=== PATIENT | female | born 1970 | race Caucasian/White ===

== ENCOUNTER 2017-03-10 06:47 | Inpatient (IN) | payer BC, OTHER ==
[2017-03-09 13:10] VITALS: BMI 34.0
[2017-03-10] MEDS ORDERED: Fentanyl 100 MCG/2 ML VIAL ONE ×2 (07:08→11:43)
[2017-03-10] MEDS ORDERED: Midazolam HCl 2 mg/2 ml Vial ONE ×3 (07:08→12:00)
[2017-03-10] MEDS ORDERED: Promethazine HCl 25 MG/ML VIAL ONE (07:08)
[2017-03-10] MEDS ORDERED: Bupivacaine PF 0.5% 30 ML VIAL ONE (07:15)
[2017-03-10] MEDS ORDERED: Lidocaine 1% w/Epinephrine 1:200K 30 ML VIAL ONE (07:15)
[2017-03-10] MEDS ORDERED: Ketorolac Tromethamine 30 MG/ML VIAL ONE (07:21)
[2017-03-10 07:42] LABS: #Basophils 0.1 thou/uL (0.0-0.2); #Eosinphils 0.4 thou/uL (0.0-0.7); #Lymphocytes 3.5 thou/uL (1.20-3.40); #Monocytes 0.8 thou/uL (0.11-0.59); #Neutrophils 4.8 thou/uL (1.40-6.50); %Basophils 1.3 % (0.0-1.0); %Eosinophils 4.4 % (0.0-10.0); %Lymphocytes 36.6 % (21.0-51.0); %Monocytes 7.8 % (0.0-10.0); Hematocrit 41.9 % (36.0-47.0); Mean Platelet Volume 6.5 fL (7.4-10.4); Red Blood Cell (RBC) Count 4.23 mill/uL (4.20-5.40); White Blood Cell (WBC) Count 9.6 thou/uL (4.8-10.8)
[2017-03-10 08:04] LABS: Anion Gap 13 mmol/L (10-20); BUN (Urea Nitrogen) 20 mg/dL (7.0-18.7); Calc. Creatinine Clearance 118 mL/min (70-130); Calcium 9.5 mg/dL (7.8-10.44); Carbon Dioxide 25 mmol/L (22-29); Chloride 103 mmol/L (98-107); Estimated GFR-MDRD 82
[2017-03-10] MEDS ORDERED: Lidocaine 1% PF 5 ML VIAL ONE (08:33)
[2017-03-10] MEDS ORDERED: Glycopyrrolate 0.2 MG/ML 5 ML SYRINGE ONE (08:33)
[2017-03-10] MEDS ORDERED: Propofol 200 MG/20 ML VIAL ONE (08:33)
[2017-03-10] MEDS ORDERED: ePHEDrine/0.9% NaCl/PF SYRINGE 50 mg/10 ml ONE (08:33)
[2017-03-10] MEDS ORDERED: Ondansetron HCl/PF 4 MG/2 ML Vial ONE (08:33)
[2017-03-10] MEDS ORDERED: PHENYLEPHRINE-NS 100 MCG/ML 10 ML SYRINGE ONE (08:33)
[2017-03-10] MEDS ORDERED: Dexamethasone 20 MG/5 ML VIAL ONE (08:33)
[2017-03-10] MEDS ORDERED: Labetalol HCl 100 MG/20 ML SYR ONE (08:33)
[2017-03-10] MEDS ORDERED: Labetalol HCl 100 MG/20 ML VIAL ONE (11:17)
[2017-03-10] MEDS ORDERED: Promethazine HCl 25 MG/ML VIAL SLOW IVP PRN (11:23)
[2017-03-10] MEDS ORDERED: HYDROmorphone 2 MG/ML VIAL SLOW IVP PRN (11:23)
[2017-03-10] MEDS ORDERED: Morphine Sulfate 2 MG/ML SYRINGE SLOW IVP PRN ×2 (11:23→13:20)
[2017-03-10] MEDS ORDERED: Meperidine HCl/PF 25 MG/ML VIAL SLOW IVP PRN (11:23)
[2017-03-10] MEDS ORDERED: Ondansetron HCl/PF 4 MG/2 ML Vial IVP PRN ×2 (11:23→13:20)
[2017-03-10] MEDS ORDERED: Promethazine HCl 25 MG/ML VIAL IM PRN (13:20)
[2017-03-10] MEDS ORDERED: Dextrose 5% in Water 1,000 ML IV PRN (13:20)
[2017-03-10] MEDS ORDERED: Calcium Carbonate 500 MG ChewTAB PO PRN (13:20)
[2017-03-10] MEDS ORDERED: Dextrose 50% Abboject 50 ML SYRINGE SLOW IVP PRN (13:20)
[2017-03-10] MEDS ORDERED: Mag-Al 1200 mg/1200 mg/30 ML UDCUP PO PRN (13:20)
[2017-03-10] MEDS ORDERED: HYDROcodone/Acetaminophen 7.5/325 mg Tablet PO PRN (13:20)
[2017-03-10] MEDS: D5 1/2 NS w/20 mEq KCL 1,000 ML IV SCH ×2 (13:32→19:56)
[2017-03-10] MEDS: Ketorolac Tromethamine 30 MG/ML VIAL IVP SCH ×3 (14:33→21:59)
--- NOTE | 2017-03-10 15:07 | EKG ---
Test Reason : Blood Pressure : / mmHG Vent. Rate : 081 BPM Atrial Rate : 081 BPM P-R Int : 176 ms QRS Dur : 068 ms QT Int : 386 ms P-R-T Axes : 051 004 015 degrees QTc Int : 448 ms Normal sinus rhythm Premature atrial complexes Low voltage QRS Septal infarct , age undetermined cannot be excluded Abnormal ECG Confirmed by LACIE ARCOS ([id number]) on 03/10/2017 3:06:30 PM Referred By: ALEJANDRO Confirmed By:LACIE ARCOS
[2017-03-10] MEDS: HYDROcodone/Acetaminophen 7.5/325 mg Tablet PO PRN ×2 (15:21→19:57)
[2017-03-10 19:05] LABS: Mean Platelet Volume 6.9 fL (7.4-10.4); White Blood Cell (WBC) Count 14.4 thou/uL (4.8-10.8)
[2017-03-10] MEDS: Famotidine 20 MG TAB PO SCH (19:55)
[2017-03-10] MEDS: Famotidine/PF 20 mg/2ml Vial SLOW IVP SCH (19:56)
[2017-03-11] MEDS: HYDROcodone/Acetaminophen 7.5/325 mg Tablet PO PRN ×3 (00:30→09:12)
[2017-03-11] MEDS: D5 1/2 NS w/20 mEq KCL 1,000 ML IV SCH ×2 (04:50→14:04)
[2017-03-11] MEDS: Ketorolac Tromethamine 30 MG/ML VIAL IVP SCH ×2 (05:24→11:30)
[2017-03-11 06:09] LABS: #Eosinphils 0.1 thou/uL (0.0-0.7); #Lymphocytes 2.1 thou/uL (1.20-3.40); #Monocytes 0.9 thou/uL (0.11-0.59); #Neutrophils 8.3 thou/uL (1.40-6.50); %Basophils 0.4 % (0.0-1.0); %Eosinophils 0.8 % (0.0-10.0); %Lymphocytes 18.3 % (21.0-51.0); %Monocytes 7.9 % (0.0-10.0); Hematocrit 34.6 % (36.0-47.0); Mean Platelet Volume 7.1 fL (7.4-10.4); Red Blood Cell (RBC) Count 3.42 mill/uL (4.20-5.40); White Blood Cell (WBC) Count 11.4 thou/uL (4.8-10.8)
[2017-03-11 06:37] LABS: ALT (SGPT) 434 U/L (8-55); AST (SGOT) 435 U/L (5-34); Alkaline Phosphatase 44 U/L (40-150); Anion Gap 13 mmol/L (10-20); BUN (Urea Nitrogen) 9 mg/dL (7.0-18.7); Bilirubin, Total 0.6 mg/dL (0.2-1.2); Calc. Creatinine Clearance 138 mL/min (70-130); Calcium 8.7 mg/dL (7.8-10.44); Carbon Dioxide 23 mmol/L (22-29); Chloride 105 mmol/L (98-107); Estimated GFR-MDRD Greater than 90; Globulin 2.5 g/dL (2.4-3.5)
[2017-03-11] MEDS ORDERED: Enoxaparin Sodium 40 MG/0.4 ML SYRINGE SC SCH (09:00)
[2017-03-11] MEDS ORDERED: Hydrochlorothiazide 25 MG TAB PO SCH (09:00)
[2017-03-11] MEDS ORDERED: NORETHINDRONE E ESTRADIOL IRON PO SCH (09:00)
[2017-03-11] MEDS ORDERED: Lisinopril 20 MG TAB PO SCH (09:00)
[2017-03-11] MEDS: Famotidine 20 MG TAB PO SCH (09:06)
[2017-03-11] MEDS: Famotidine/PF 20 mg/2ml Vial SLOW IVP SCH (09:08)
[2017-03-11 15:46] VITALS: BP 101/58; TEMP 97.9
--- NOTE | 2017-03-13 07:33 | OP ---
DATE OF PROCEDURE: 03/10/2017 PREOPERATIVE DIAGNOSES: Gastroesophageal reflux disease, hiatal hernia, severe obesity. POSTOPERATIVE DIAGNOSES: Gastroesophageal reflux disease, hiatal hernia, severe obesity with marked hepatic steatosis. OPERATION PERFORMED: Laparoscopic Mely fundoplication (significantly more difficult than typical secondary to intra-abdominal obesity and hepatic steatosis). SURGEON: Dr. Андрей Tilley. ANESTHESIA: General endotracheal. INDICATIONS: The patient is a 47-year-old white female. She has a long history of gastroesophageal reflux disease. 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 She has a smallish hiatal hernia. She has been on medication with progressive intractable symptoms in spite of medication. PROCEDURE IN DETAIL: Informed consent was obtained. The patient was taken to the operating room wh ere general endotracheal anesthesia was obtained with the patient in supine position. Abdomen was p repped with ChloraPrep and draped in sterile fashion. Local anesthetic was infiltrated and 5 mm sup raumbilical incision was created through which a Veress needle was passed into the peritoneal cavity and pneumoperitoneum established using carbon dioxide up to a pressure of 15 mmHg. A 5 mm trocar p ort was passed through this same incision. Laparoscopic camera was passed through this port. Under direct vision, 4 additional ports were placed. These included an 11 mm left epigastric port, a 5 m m right epigastric port, and bilateral 5 mm lower right subcostal ports. A triangle snake retractor was passed into the right port and used to elevate the left lobe of the liver. Unfortunately, this was a very difficult endeavor secondary to iman the hepatic steatosis. I had significant difficult y with elevating the liver or retracting the liver at all to the patient's right. There was a very narrow window in which to work under the liver. It was challenging viewing the hiatus due to the la rge livers fusion to the diaphragm almost immediately over the hiatus. I was able to pass the scope under the edge of the liver and view adequately that I felt it was safe to proceed with surgery. Dissection was begun on the patient's right side. It was difficult to vi sualize the pars flaccida, but with time I was and I dissected through the fatty tissue along the le sser curve. With time I was able to identify the right sarita. I dissected along the right sarita sepa rating this from the esophagus. I dissected somewhat along the anterior aspect at this location. T urning attention to the left side, due to the patient's anatomy, I could not see any part of the lef t sarita. I therefore began dissection along the greater curvature of the stomach. The upper half of the stomach was mobilized by taking down the omental and vascular tissue using the LigaSure device. All posterior adhesions were divided as well. Dissection up around the spleen was difficult. Wit h a relatively slow and meticulous dissection, however, I was able to fully mobilize the fundus of t he stomach up to the left sarita. I then dissected the entire left sarita and freed up the esophagus as it entered into the mediastinum. From the left side I was able to complete dissection along the an terior aspect of the gastrophrenic ligament. I then turned my attention to the right and was able to dissect a retroesophageal window through whi ch I passed a Martín drain. Utilizing this for traction, I then continued dissection until the rig ht sarita and left sarita were fully dissected and I had an ample retroesophageal window. Care was take n to avoid injury to the vagus nerves during this maneuver. I passed a size 50 bougie into the stomach under vision and utilizing this as a guide, I closed the posterior hiatus with a single interrupted suture of 0 Bralon using the auto-suture device. I then passed the fundus behind the esophagus through the retroesophageal window. I was able to fascia in a tension-free wrap. A floppy 360 degree wrap was performed, placing 3 sutures of 0 Bralon between the stomach on either side of the esophagus. The upper and lower sutures included bites of the ante rior esophagus. Each of the sutures were positioned 1 cm apart. At completion of the wrap, I place d 2 collar sutures of 0 Bralon between the fundal wrap and the hiatus at about the 2 o'clock and 10 o'clock radians. During the course of this mobilization, while struggling with the hepatic steatosis, at one point e LigaSure device punctured the medial aspect of the spleen. This bled significantly for a couple o f minutes while I was obtaining hemostasis. Electrocautery was used, but found to be unsuccessful a nd I thereafter had to use Selena powder. This was applied a total of 3 times. There was found to be another area of the spleen (which was also somewhat enlarged) lower down on the anterior aspect t hat was bleeding. With careful mobilization and exposure, I was able to appropriately apply the Cheikh sta and achieved adequate hemostasis. This occurred in the middle of the operation and was checked several times thereafter to ensure appropriate hemostasis before continuing. The liver retractor was removed. The port site at the 11 mm incision was closed with 0 Vicryl sutur e using a GraNee needle. All ports and instruments were removed under direct vision. Pneumoperiton eum was carefully evacuated. Quarter percent Marcaine with epinephrine was infiltrated into each po rt site. The skin edges were approximated with 4-0 Monocryl subcuticular suture. Dermabond was allison julio externally. There were no significant complications. Blood loss was estimated at 400 mL from t he splenic injury. The patient had remained in stable condition throughout. This operation had justin en close to 3 hours to perform (about twice as long as a typical fundoplication).
== END 2017-03-11 16:13 | disposition home or self-care (01) | DRG 328 ==
LOC: SDC 06:47 → EDSTATUS 09:26 → SURG B 11:05
PROVIDERS: ADMIT Specialist; ATTEND Specialist
PROC: 0DV44ZZ Restriction of Esophagogastric Junction, Percutaneous Endoscopic Approach (ICD-10-PCS; principal; 2017-03-10)
DX: K21.0 Gastro-esophageal reflux disease with esophagitis (principal); E88.89 Other specified metabolic disorders; K44.9 Diaphragmatic hernia without obstruction or gangrene; E66.9 Obesity, unspecified; K22.70 Barrett's esophagus without dysplasia; Z68.34 Body mass index [BMI] 34.0-34.9, adult; Z87.891 Personal history of nicotine dependence
CPT/HCPCS: 36415; 80048; 80053; 85025; 93005; 93010; J0131; J1100; J1170; J1885; J2001; J2250; J2270; J2405; J2550; J2704; J3010; J7620; S0020; S0028

== ENCOUNTER 2017-08-08 22:33 | Inpatient (IN) | payer BC, OTHER ==
[2017-08-08] MEDS ORDERED: Dextrose 5% in Water 1,000 ML IV PRN (23:48)
[2017-08-08] MEDS ORDERED: Dextrose 50% Abboject 50 ML SYRINGE SLOW IVP PRN (23:48)
[2017-08-08] MEDS ORDERED: hydrALAZINE 20 MG/ML VIAL SLOW IVP PRN (23:53)
[2017-08-08] MEDS ORDERED: Ondansetron HCl/PF 4 MG/2 ML Vial IVP PRN (23:53)
[2017-08-08] MEDS ORDERED: Midazolam HCl 2 mg/2 ml Vial ONE (23:57)
[2017-08-08] MEDS ORDERED: Fentanyl 250 MCG/5 ML VIAL ONE (23:57)
[2017-08-09 00:15] LABS: INR-International Normal Ratio 1.1; PTT 25.7 SEC (22.9-36.1); Prothrombin Time 13.9 SEC (12.0-14.7)
--- NOTE | 2017-08-09 00:49 | HP ---
DATE OF ADMISSION: 08/08/2017 HISTORY OF PRESENT ILLNESS: Ms. Gusman is a 47-year-old woman who presented to [facility] in [facility] complaining of sudden-onset epigastric severe abdominal pain rated at 10/10 at onset. Pain b ecame constant, without any radiation. The patient admits to some nausea, but no emesis. She attemp crystal multiple times to vomit hoping for relief without success. She denies any fevers or chills. The patient reports she has been taking meloxicam for arthritic disease. She has increased the amount o f meloxicam she is taking over the last 2-3 weeks as joint pain had intensified. She has not been on any H2 blockers or proton pump inhibitors. PAST MEDICAL HISTORY: Pertinent for Rice's esophagus, essential hypertension, degenerative arthri tic disease, and chronic depression. PAST SURGICAL HISTORY: Pertinent for laparoscopic Mely fundoplication in 02/2017. Other surgical history includes appendectomy, . SOCIAL HISTORY: The patient is . She lives at home with her . She smokes 1-1/2 packs of cigarettes per day and has done so for over 20 years. She admits to occasional intake of ethanol in moderate amount. She denies any illicit drug abuse. FAMILY HISTORY: Noncontributory for this patient's age. MEDICATIONS: Prehospitalization medication has been reviewed to include citalopram 20 mg p.o. daily, meloxicam 15 mg p.o. q.p.m., control pills, lisinopril/hydrochlorothiazide 20/12.5 mg p.o. marquez ly, and aspirin 81 mg p.o. daily. ALLERGIES: The patient denies any known drug allergies. REVIEW OF SYSTEMS: 10-point review of systems is essentially unremarkable except for as stated in pa st medical history and chief complaint. PHYSICAL EXAMINATION: GENERAL: This reveals a 47-year-old obese woman, who is otherwise coherent and interactive and appears stated age. The patient is alert and oriented x3, appears to be in no significant acute distress at the time of my evaluation. She now rates her pain at 8/10 having received some morphine sulfate prior to arrival. VITAL SIGNS: Today includes blood pressure 134/78, pulse 73, respiratory rate is 18, temperature 98. 5 degrees Fahrenheit, and oxygen saturation 94% on room air. HEENT: Reveals normocephalic and atraumatic. Pupils are equal, round, and reactive to light and acc ommodation. Extraocular muscles are intact bilaterally. She has no scleral icterus present. No jug ular venous distention is noted. HEART: Reveals regular rate and rhythm. No murmurs or gallops auscultated. LUNGS: Clear to auscultation bilaterally. Breathing regular and unlabored. ABDOMEN: Soft and obese. She has palpable tenderness in the epigastrium to right upper quadrant wit h positive rebound. Liver and spleen are otherwise nonpalpable below costal margins. NEUROLOGIC: Reveals no focal deficits present. EXTREMITIES: Reveals 2+ radial and pedal pulses bilaterally. No ankle edema present. LABORATORY DATA: I have reviewed the accompanying laboratory studies from [place] to include a CB C with 9100 white blood cells, hemoglobin 13.1, hematocrit is 39, platelet count is 549,000. Metabol ic profile: Sodium is 133, potassium is 3.6, bicarbonate 24, BUN 12, creatinine 0.7, glucose 89. I have also reviewed the accompanying CT scan of the abdomen and pelvis from [place], which reveals moderate amount of free intraperitoneal air with small amount of pelvic free fluid. There is fat str anding in the neighborhood of the stomach. IMPRESSIONS: Acute abdominal pain with peritonitis secondary to perforated viscus. I suspect perfor ated ulcer given this patient's recent increase in usage of nonsteroidal anti-inflammatory agent with out any PPI or H2 blockade. PLAN: Exploratory laparotomy and repair of perforated viscus. Above findings and plan have been discussed with the patient and her as well as an adult son, all at bedside. I have advised the patient of the risks and benefits of the proposed surgery. Risk s include, but not limited to bleeding, infection, injury to surrounding structures. The patient indicates understanding of this information. I have answered her questions. The patient has granted consent for this admission and surgical inter vention.
[2017-08-09] MEDS ORDERED: Fentanyl 250 MCG/5 ML VIAL ONE ×2 (01:30→03:05)
[2017-08-09] MEDS ORDERED: Morphine 4 MG/ML VIAL SLOW IVP PRN (02:58)
[2017-08-09] MEDS ORDERED: Meperidine HCl/PF 25 MG/ML VIAL SLOW IVP PRN (03:05)
[2017-08-09] MEDS ORDERED: Ondansetron HCl/PF 4 MG/2 ML Vial IVP PRN (03:05)
[2017-08-09] MEDS ORDERED: Promethazine HCl 25 MG/ML VIAL IM PRN ×2 (03:05→10:42)
[2017-08-09] MEDS ORDERED: Promethazine HCl 25 MG/ML VIAL SLOW IVP PRN (03:05)
[2017-08-09] MEDS ORDERED: Sodium Chloride 0.9% 20 ML ONE (03:14)
[2017-08-09] MEDS: Morphine 4 MG/ML VIAL SLOW IVP PRN ×4 (04:12→10:40)
[2017-08-09] MEDS: Piperacillin/Tazobactam 3.375 GM in Sodium Chloride 0.9% 100 ML IVPB SCH ×4 (04:59→18:09)
[2017-08-09 05:10] LABS: #Lymphocytes 0.8 thou/uL (1.20-3.40); #Monocytes 0.3 thou/uL (0.11-0.59); #Neutrophils 9.7 thou/uL (1.40-6.50); %Basophils 0.1 % (0.0-1.0); %Eosinophils 0.2 % (0.0-10.0); %Lymphocytes 7.5 % (21.0-51.0); %Monocytes 2.4 % (0.0-10.0); %Neutrophils 89.7 % (42.0-75.0); Hemoglobin 11.7 g/dL (12.0-16.0); Mean Corpuscular HGB CONC 32.2 g/dL (32.0-36.0); Mean Corpuscular Hemoglobin 31.9 pg (27.0-31.0); Mean Corpuscular Volume 99.1 fl (81.0-99.0); Mean Platelet Volume 7.3 fL (7.4-10.4); Platelet Count 459 thou/uL (130-400); RBC Distribution Width 12.9 % (11.5-14.5); Red Blood Cell (RBC) Count 3.66 mill/uL (4.20-5.40); White Blood Cell (WBC) Count 10.8 thou/uL (4.8-10.8)
[2017-08-09] MEDS: Acetaminophen 1,000 MG in Premix Bag 1 BAG IVPB SCH ×3 (05:22→18:09)
--- NOTE | 2017-08-09 05:27 | OP ---
DATE OF OPERATION: 08/09/2017 PREOPERATIVE DIAGNOSIS: Acute abdominal pain secondary to perforated viscus. POSTOPERATIVE DIAGNOSES: 1. Acute abdominal pain secondary to perforated viscus. 2. Acute abdominal pain secondary to perforated greater curvature gastric ulcer. 3. Acute peritonitis. OPERATIONS PERFORMED: 1. Exploratory laparotomy. 2. Oversew of greater curvature gastric ulcer perforation with Arcadio patch. 3. Placement of feeding nasojejunal tube. SURGEON: Tim Diego D.O. ANESTHESIA: General endotracheal. ESTIMATED BLOOD LOSS: 100 mL. FLUIDS GIVEN: 1600 mL crystalloids. SPONGE AND INSTRUMENT COUNT: Certified as correct x2. COMPLICATIONS: None apparent at the time of operation. INDICATIONS FOR OPERATION: This is a 47-year-old woman status post laparoscopic Mely fun doplication. The patient presented with acute onset epigastric abdominal pain. Clinical and radiogr aphic examination was consistent with acute perforated viscus causing severe abdominal pain with poss ible peritonitis. The patient was brought to the operating room for exploration. Findings are consi stent with perforated greater curvature 3-mm ulcer with over 300 mL of succus entericus in the perito ashley cavity. DESCRIPTION OF PROCEDURE: Informed consent obtained from the patient who was brought to the operatin g room and placed in supine position. Following general anesthesia, the abdomen is sterilely prepped and draped in usual fashion. Midline incision is made above the umbilicus using #10 scalpel. Incis ion was carried through subcutaneous tissues maintaining hemostasis using thermocautery. Fascia was incised in the midline using cautery exposing the peritoneum beneath, which was grasped x2 with hemos tats. The peritoneal cavity was sharply entered and immediately a large amount of air escaped. Expl oration revealed cloudy ascitic fluid. Small bowel was run from ligament of Treitz down to terminal ileum. No pathology identified. I inspected the stomach proper and previous nasogastric tube and ga stric lumen. I then proceeded to examine the previous Mely wrap, which remains intact. Upon exploration a 3-mm greater curvature of gastric ulcer perforation is identified. A fair amount of fibrinous exudates in the area, which were evacuated. The ulcer is repaired using interrupted sut ures of 3-0 silk. I then freshened the lip of omentum, which is secured over the repair to achieve a Arcadio patch. The colon was inspected. No other pathology identified. At this juncture, a feeding nasojejunal tube w as inserted by Anesthesia tip of which was palpated by myself within the gastric lumen. Under manipu lated tip of this catheter into proximal small bowel without resistance. Abdominal cavity was evacuated of clot or succus. It was then copiously irrigated clear with saline solution. Finding no other pathology, exploration is terminated. A #19-Shan drain was introduced o jackie the right upper quadrant and allowed to exit the abdominal cavity through a separate stab incisio n. The drain was secured to intraabdominal wall using a 2-0 silk suture. Small bowel was returned t o normal anatomic location. The remainder of the omentum is drawn over the viscera. Fascia was reap proximated in the midline using a running stitch of #1 single stranded PDS. Subcutaneous tissues irr igated clear with saline solution. Subcutaneous tissues were approximated using interrupted sutures of 2-0 Vicryl. Skin incisions closed using ilya. Sterile dressings were applied. The patient to lerated the operation without any apparent complication and was returned to recovery room in satisfac tory condition.
[2017-08-09 05:34] LABS: Anion Gap 13 mmol/L (10-20); BUN (Urea Nitrogen) 14 mg/dL (7.0-18.7); Calc. Creatinine Clearance 0 mL/min (70-130); Carbon Dioxide 19 mmol/L (22-29); Chloride 108 mmol/L (98-107); Estimated GFR-MDRD Greater than 90; Glucose 150 mg/dL (70-105); Potassium 3.6 mmol/L (3.5-5.1); Sodium 136 mmol/L (136-145)
[2017-08-09] MEDS: D5 1/2 NS w/20 mEq KCL 1,000 ML IV SCH ×3 (06:43→12:24)
[2017-08-09 08:02] VITALS: BMI 30.2
[2017-08-09] MEDS: Pantoprazole 40 MG VIAL IVP SCH ×2 (08:31→22:14)
[2017-08-09] MEDS: Enoxaparin Sodium 40 MG/0.4 ML SYRINGE SC SCH (08:32)
[2017-08-09] MEDS: Citalopram 20 MG TAB PO SCH ×2 (08:33→14:09)
[2017-08-09] MEDS ORDERED: Lorazepam 2 MG/ML VIAL SLOW IVP PRN (09:57)
[2017-08-09] MEDS ORDERED: Lorazepam 2 MG/ML VIAL ONE (10:00)
[2017-08-09] MEDS ORDERED: Naloxone HCl 0.4 mg/ml Vial IV PRN (10:42)
[2017-08-09] MEDS ORDERED: diphenhydrAMINE 50 MG/ML VIAL IVP PRN (10:42)
[2017-08-09] MEDS ORDERED: diphenhydrAMINE 25 MG CAP PO PRN (10:42)
[2017-08-09] MEDS ORDERED: diphenhydrAMINE 50 MG/ML VIAL IM PRN (10:42)
[2017-08-09] MEDS ORDERED: Communication Order-Pharmacy FS SCH (10:45)
--- NOTE | 2017-08-09 12:44 | RAD ---
AP VIEW ABDOMEN: HISTORY: Dobbhoff tube placement. FINDINGS: AP view abdomen was obtained on 08/09/17. Comparison study is not available. AP view abdomen demonstrates a nasogastric tube in place. Anterior skin ilya seen. There is placement of a Dobbhoff tube distal tip overlying the proximal jejunum. There is also a surgical drain over the left lateral and mid abdomen. Pelvic fallopian tube clips are in place. IMPRESSION: Dobbhoff tube appears to have its distal tip overlying the expected location of the jejunum. POS: PILO
[2017-08-09] MEDS: HYDROmorphone 10 mg/100 ml CADD IVPB PRN (12:55)
[2017-08-09] MEDS ORDERED: Lorazepam 2 MG/ML VIAL SLOW IVP SCH (13:00)
[2017-08-09] MEDS ORDERED: Propofol 200 MG/20 ML VIAL ONE (15:27)
[2017-08-09] MEDS ORDERED: Glycopyrrolate 0.2 MG/ML 5 ML SYRINGE ONE (15:27)
[2017-08-09] MEDS ORDERED: Lidocaine 1% PF 5 ML VIAL ONE (15:27)
[2017-08-09] MEDS ORDERED: ePHEDrine/0.9% NaCl/PF SYRINGE 50 mg/10 ml ONE (15:27)
[2017-08-09] MEDS ORDERED: Succinylcholine Chloride 20 MG/ML 10 ml SYRINGE FS ONE (15:27)
[2017-08-09] MEDS ORDERED: Diazepam 5 MG TAB PO SCH ×3 (16:00)
[2017-08-09] MEDS: Diazepam 5 MG TAB PO PRN (18:10)
--- NOTE | 2017-08-09 19:03 | PRG ---
DATE OF SERVICE: 08/09/2017 SUBJECTIVE: Ms. Gusman is postop day #1, status post exploratory laparotomy and repair of gastric u lcer perforation. Prior to that, she is approximately 3 months status post laparoscopic Mely fund oplication. The patient reports uncontrolled abdominal pain today. She became delirious this morning and agitated, reporting panic attacks, which according to the patie nt and her , she is prone to. This was resolved with a dose of Ativan. She denies passing any flatus. Urinary output; however, is adequate. OBJECTIVE: VITAL SIGNS: Today includes blood pressure 129/87, pulse 84, respiratory rate is 18, temperature is 98.4 degrees Fahrenheit and oxygen saturation 95% on room air. HEENT: Reveals normocephalic and atraumatic. HEART: Reveals regular rate and rhythm. No murmurs or gallops auscultated. CHEST: Lungs clear to auscultation bilaterally. Breathing regular and unlabored. ABDOMEN: Soft with moderate incisional tenderness to palpation. She has no gross rebound tenderness . NEUROLOGICAL: Reveals no focal neurologic deficits present. Currently, the patient's Henrry coma s paula is 15. LABORATORY DATA: Today includes a CBC with 10,800 white blood cells, hemoglobin and hematocrit are s table at 11.7 and 36.2 respectively. Platelet count is 459,000. Metabolic profile: Sodium 136, potassium is 3.6, chloride is 108, bicarbonate is 19, BUN and creatin ine are 14 and 0.69 respectively. Glucose is 150. IMPRESSION: Postoperative day #1 status post exploratory laparotomy with repair of perforated gastri c ulcer. The patient is hemodynamically stable. PLAN: 1. Optimize pain management using DANCE COACH. 2. Increase activity as tolerated. 3. We will resume prehospitalization antidepressants. Above findings and plan discussed with the patient who indicates understanding of the information giv en. I have answered their questions.
--- NOTE | 2017-08-09 23:50 | PRG ---
DATE OF SERVICE: 08/09/2017 SUBJECTIVE: This is a 47-year-old female status post exploratory laparotomy, repair of gastric ulcer perforation, postop day #0. She is approximately 3 months status post Mely fundoplication. The patient did have problems with agitation and uncontrolled pain earlier this morning. Since that time, she has been placed on PRE[employer] CONCRETE IRONWORKER pump. She was also started on Valium. Upon my evaluation, she states her pain is better controlled. She still denies flatus or bowel movements. OBJECTIVE: VITAL SIGNS: Reviewed and stable. GENERAL: The patient recently returned from restroom. LUNGS: Breathing is nonlabored. ABDOMEN: Soft with generalized tenderness. EXTREMITIES: Moves all extremities. NEUROLOGIC: No focal deficit is noted. ASSESSMENT AND PLAN: As documented in daily progress note. Continue care as ordered. Continue to monitor. Await return of bowel function. MTDD
[2017-08-10] MEDS: Diazepam 5 MG TAB PO PRN ×5 (01:04→23:59)
[2017-08-10] MEDS: Acetaminophen 500 MG TAB PO SCH ×5 (01:05→23:58)
[2017-08-10] MEDS: Piperacillin/Tazobactam 3.375 GM in Sodium Chloride 0.9% 100 ML IVPB SCH ×5 (01:05→23:58)
[2017-08-10] MEDS: D5 1/2 NS w/20 mEq KCL 1,000 ML IV SCH ×4 (01:07→23:58)
[2017-08-10 06:01] LABS: #Eosinphils 0.2 thou/uL (0.0-0.7); #Lymphocytes 2.5 thou/uL (1.20-3.40); #Monocytes 0.7 thou/uL (0.11-0.59); #Neutrophils 11.1 thou/uL (1.40-6.50); %Basophils 0.1 % (0.0-1.0); %Eosinophils 1.3 % (0.0-10.0); %Lymphocytes 17.1 % (21.0-51.0); %Monocytes 4.8 % (0.0-10.0); %Neutrophils 76.8 % (42.0-75.0); Hemoglobin 10.1 g/dL (12.0-16.0); Mean Corpuscular HGB CONC 33.1 g/dL (32.0-36.0); Mean Corpuscular Hemoglobin 32.6 pg (27.0-31.0); Mean Corpuscular Volume 98.5 fl (81.0-99.0); Mean Platelet Volume 7.3 fL (7.4-10.4); Platelet Count 442 thou/uL (130-400); RBC Distribution Width 12.9 % (11.5-14.5); Red Blood Cell (RBC) Count 3.09 mill/uL (4.20-5.40); White Blood Cell (WBC) Count 14.5 thou/uL (4.8-10.8)
[2017-08-10 06:28] LABS: Anion Gap 11 mmol/L (10-20); BUN (Urea Nitrogen) 10 mg/dL (7.0-18.7); Calc. Creatinine Clearance 117 mL/min (70-130); Calcium 8.8 mg/dL (7.8-10.44); Carbon Dioxide 24 mmol/L (22-29); Estimated GFR-MDRD Greater than 90; Glucose 123 mg/dL (70-105); Magnesium 1.8 mg/dL (1.6-2.6); Phosphorus 2.3 mg/dL (2.3-4.7); Potassium 3.5 mmol/L (3.5-5.1)
[2017-08-10 06:39] LABS: Chloride 104 mmol/L (98-107); Sodium 135 mmol/L (136-145)
[2017-08-10] MEDS: Lisinopril/Hydrochlorothiazide 20 mg/12.5 mg Tablet PO SCH (09:28)
[2017-08-10] MEDS: Citalopram 20 MG TAB PO SCH (09:28)
[2017-08-10] MEDS: Pantoprazole 40 MG VIAL IVP SCH ×2 (09:29→19:59)
[2017-08-10] MEDS: Enoxaparin Sodium 40 MG/0.4 ML SYRINGE SC SCH (09:29)
[2017-08-10] MEDS: HYDROmorphone 10 mg/100 ml CADD IVPB PRN (12:18)
[2017-08-10] MEDS ORDERED: Polyethylene Glycol 3350 17 GM Packet PO PRN (18:48)
[2017-08-10] MEDS: Bisacodyl 10 MG SUPP PR PRN (19:59)
[2017-08-10] MEDS ORDERED: Docusate 100 MG CAP PO SCH (21:00)
--- NOTE | 2017-08-11 02:33 | PRG ---
DATE OF SERVICE: 08/10/2018 SUBJECTIVE: This is a 47-year-old female, who is postop day #1, status post exploratory laparotomy and repair of gastric ulcer perforation. Earlier today, the patient had increased abdominal distention and bloating and tube feeds were temporarily stopped. She received a rectal suppository. Although patient has not had a bowel movement, she thinks she is starting to pass some flatus this evening. She further states that the bloating seems to be improving. Pain has been controlled via PRESS LEADER pump. Upon my evaluation, she vocalized no complaints. OBJECTIVE: VITAL SIGNS: Reviewed. The patient is mildly tachycardic. O2 sat 93% on room air. GENERAL: Resting in bed in no acute distress. LUNGS: Breathing is nonlabored. ABDOMEN: Soft with generalized tenderness. No guarding or rigidity. ASSESSMENT AND PLAN: As documented in daily progress note. Continue care as ordered. Continue to monitor. The patient should be reminded of importance of incentive spirometry of mobilizing and pulmonary toileting. Await return of bowel function. MTDD
[2017-08-11] MEDS: Acetaminophen 500 MG TAB PO SCH ×4 (06:23→23:56)
[2017-08-11] MEDS: Piperacillin/Tazobactam 3.375 GM in Sodium Chloride 0.9% 100 ML IVPB SCH ×4 (06:23→23:58)
[2017-08-11] MEDS: Citalopram 20 MG TAB PO SCH (08:32)
[2017-08-11] MEDS: Diazepam 5 MG TAB PO PRN ×3 (08:33→23:57)
[2017-08-11] MEDS: Lisinopril/Hydrochlorothiazide 20 mg/12.5 mg Tablet PO SCH (08:33)
[2017-08-11] MEDS: Pantoprazole 40 MG VIAL IVP SCH ×2 (08:33→20:09)
[2017-08-11] MEDS: Enoxaparin Sodium 40 MG/0.4 ML SYRINGE SC SCH (08:34)
--- NOTE | 2017-08-11 08:50 | PRG ---
DATE OF SERVICE: 08/10/2017 ATTENDING PHYSICIAN: Layton Alexander M.D. SUBJECTIVE: Ms. Gusman is postoperative day #2, status post exploratory laparotomy and repair of ga stric ulcer perforation. Prior to that, she has approximately 3 months status post laparoscopic Niss en fundoplication. She has been stable on the surgical floor. CALL WORKER PERSON and Valium were added yesterday f or abdominal pain. She reports that (0:44)
[2017-08-11] MEDS: traMADol HCl 50 MG TAB PO SCH ×3 (11:28→23:56)
[2017-08-11] MEDS: D5 1/2 NS w/20 mEq KCL 1,000 ML IV SCH ×2 (13:10→23:55)
--- NOTE | 2017-08-11 14:40 | PRG ---
DATE OF SERVICE: 08/11/2017 SUBJECTIVE: Ms. Gusman is awake and alert today. She is postoperative day #2 status post explorato ry laparotomy and repair of perforated gastric ulcer. She reports adequate pain control. She has ad equate urinary output. She is tolerating trophic tube feeds. OBJECTIVE: VITAL SIGNS: Today includes blood pressure 118/79, pulse 78, respiratory rate 16, temperature 98 deg rosemary Fahrenheit, oxygen saturation is 92% on room air. HEENT: Reveals normocephalic and atraumatic. Pupils are equal, round, and reactive to light and acc ommodation. HEART: Reveals regular rate and rhythm, no murmurs or gallops auscultated. CHEST: Lungs clear to auscultation bilaterally. Breathing is regular and unlabored. ABDOMEN: Soft with incisional tenderness to palpation. The incision otherwise remains intact, clean , and dry. Sánchez-Joyner drain returns scant serous fluid. NEUROLOGIC: Reveals no focal deficits present. IMPRESSION: Postoperative day #2 status post exploratory laparotomy and repair of perforated gastric ulcer. The patient is otherwise hemodynamically stable. PLAN: 1. Discontinue Dilaudid MODERN LANGUAGES PROFESSOR and convert analgesics to oral intake. 2. Increase activity as tolerated. 3. We will obtain a Gastrografin upper GI tomorrow. If no leak, resume diet. The above findings an d plan discussed with the patient who indicates understanding of information given. I answered her q uestions. The patient has expressed gratitude for the care and nurture during this hospitalization a nd surgery.
[2017-08-11] MEDS: Bisacodyl 10 MG SUPP PR PRN (20:15)
[2017-08-12] MEDS: Piperacillin/Tazobactam 3.375 GM in Sodium Chloride 0.9% 100 ML IVPB SCH ×2 (05:21→12:23)
[2017-08-12] MEDS: traMADol HCl 50 MG TAB PO SCH ×2 (05:22→12:17)
[2017-08-12] MEDS: Acetaminophen 500 MG TAB PO SCH ×2 (05:23→12:23)
[2017-08-12] MEDS ORDERED: Furosemide 20 MG/2 ML VIAL SLOW IVP SCH (08:45)
[2017-08-12] MEDS ORDERED: Amlodipine 5 MG TAB PO SCH (09:00)
[2017-08-12] MEDS: Enoxaparin Sodium 40 MG/0.4 ML SYRINGE SC SCH (10:16)
[2017-08-12] MEDS: Lisinopril/Hydrochlorothiazide 20 mg/12.5 mg Tablet PO SCH (10:16)
[2017-08-12] MEDS: Citalopram 20 MG TAB PO SCH (10:17)
[2017-08-12] MEDS: Diazepam 5 MG TAB PO PRN (10:20)
--- NOTE | 2017-08-12 11:02 | RAD ---
GASTROGRAFIN UPPER GI: Date: 08-12-17 History: Gastric ulcer, perforation, status post repair. FINDINGS: Gang Boss imaging demonstrates a Dobbhoff tube extending into the mid left abdomen, likely within the pro ximal jejunum. Vertically oriented cutaneous ilya overlie the midline abdomen and pelvis. There is a post-surgical drainage catheter overlying the epigastric region extending into the left lower quad rant. There is patchy increased pleural and parenchymal opacity in the left lung base. The patient ingested Gastrografin and the contrast media was followed from the level of the distal es ophagus through the proximal small bowel. There is no evidence for leak or obstruction. No contrast m edia extends beyond the confines of the bowel and no evidence for contrast media in the region of the post-surgical drain. IMPRESSION: Limited Gastrografin upper GI demonstrates no evidence for gastric leak or gastric outlet obstruction . POS: PILO
--- NOTE | 2017-08-12 11:26 | PRG ---
DATE OF SERVICE: 08/12/2017 SUBJECTIVE: The patient is postop day #2, status post exploratory laparotomy and repair of perforate d gastric ulcer. This evening, the patient has no complaints. She does other than having some feeli ng of bloatedness. She is tolerating her tube feeds. OBJECTIVE: VITAL SIGNS: Stable. Patient remains afebrile. ABDOMEN: Soft. Her dressing is clean, dry, and intact. She has little to no bowel sounds at this t cesilia, which is to be expected. ASSESSMENT: Status post exploratory laparotomy and repair of perforated gastric ulcer. PLAN: Will be to continue her pain management, tube feeds, and she will have a Gastrografin upper GI in the morning and her plan will be modified according to those findings, otherwise, we will continu e supportive care tonight.
[2017-08-12] MEDS: Pantoprazole 40 MG VIAL IVP SCH (12:16)
[2017-08-12] MEDS ORDERED: Furosemide 20 MG TAB PO SCH (12:30)
[2017-08-12] MEDS ORDERED: Acetaminophen 500 MG TAB PO SCH (15:00)
[2017-08-12 15:44] VITALS: BP 123/85; TEMP 98.2
--- NOTE | 2017-08-12 23:54 | DIS ---
DATE OF ADMISSION: 08/09/2017 DATE OF DISCHARGE: 08/12/2017 ADMITTING PHYSICIAN: Tim Diego D.O. DISCHARGING PHYSICIAN: Tim Diego D.O. ADMISSION DIAGNOSIS: Acute abdominal pain with peritonitis secondary to perforated viscus. DISCHARGE DIAGNOSES: 1. Acute abdominal pain secondary to perforated and greater curvature gastric ulcer status post surg ical repair. 2. Acute peritonitis. PROCEDURES PERFORMED: 1. Exploratory laparotomy. 2. Oversew of greater curvature gastric ulcer perforation with Arcadio patch. 3. Placement of feeding nasojejunal tube. HOSPITAL COURSE: Ms. Gusman is a 47-year-old female who presented to the hospital in [facility] of sudden onset epigastric severe abdominal pain which she rated at 10/10. She was found to have a perforated viscus and was transported by EMS to the [facility] ED where she was on further ev aluation determined that she had a perforated gastric ulcer. She was admitted by Dr. Tim Diego t the surgical floor. She underwent exploratory laparotomy with a Arcadio patch for her gastric ulcer . She also had a nasojejunal tube placed as well. Postoperatively, the patient was started on tube feeds which she tolerated. She had an upper GI series with Gastrografin on 08/12/2017 which showed n o leak in her repaired ulcer. Laboratory studies for H. pylori infection were also obtained, but did not result prior to discharge. The patient was started on empiric Pylera and proton pump inhibitor. She was discharged in stable condition with instructions to follow up with Dr. Tim Diego in 2 w [facility] for surgical followup and in 1 week for staple removal. The patient also instructed to follow u p with Dr. Supriya Bell from Gastroenterology. DISCHARGE MEDICATIONS: The patient was discharged home on the following medications: 1. Acetaminophen 1000 mg q.6 hours. 2. Pylera 3 capsules by mouth after meals and at bedtime x10 days. 3. Omeprazole 20 mg by mouth twice daily. 4. Tramadol 50 to 100 mg by mouth every 6 hours as needed. ACTIVITY INSTRUCTIONS: Activity as tolerated. DIET INSTRUCTIONS: Regular diet. REFERRALS AND FOLLOWUP INSTRUCTIONS: The patient is to follow up with Dr. Tim Diego in 1 week fo r staple removal. She is also to follow up in 2 weeks for postsurgical followup. The patient is ins tructed to follow up with Dr. Supriya Bell in 1 month and the patient also instructed to follow up w ith her PCP as needed. This patient was seen and examined on rounds with Dr. Tim Diego who agrees with this discharge pl an.
== END 2017-08-12 16:48 | disposition home or self-care (01) | DRG 329 ==
LOC: ERS 22:33 → SURG A 08-09 00:29 → SDC 08-09 00:43 → SURG A 08-09 03:10
PROVIDERS: ADMIT Surgery; ATTEND Surgery
PROC: 0DU907Z Supplement Duodenum with Autologous Tissue Substitute, Open Approach (ICD-10-PCS; principal; 2017-08-09)
PROC: 0DH67UZ Insertion of Feeding Device into Stomach, Via Natural or Artificial Opening (ICD-10-PCS; 2017-08-09)
DX: K25.1 Acute gastric ulcer with perforation (principal); K63.1 Perforation of intestine (nontraumatic); K65.0 Generalized (acute) peritonitis; R00.0 Tachycardia, unspecified; Z87.891 Personal history of nicotine dependence; K22.70 Barrett's esophagus without dysplasia; I10 Essential (primary) hypertension; F32.9 Major depressive disorder, single episode, unspecified
CPT/HCPCS: 36415; 74018; 74241; 80048; 83735; 84100; 85025; 85610; 85730; 86677; 86850; 86900; 86901; 96360; A4216; C9113; J0131; J1650; J2001; J2060; J2250; J2270; J2405; J2543; J2704; J3010; J7050; J7620

== ENCOUNTER 2017-12-01 13:02 | Observation (INO) | payer BC, OTHER ==
[2017-12-01] MEDS ORDERED: Dextrose 5% in Water 1,000 ML IV PRN (16:50)
[2017-12-01] MEDS ORDERED: Ondansetron HCl/PF 4 MG/2 ML Vial IVP PRN (16:50)
[2017-12-01] MEDS ORDERED: Dextrose 50% Abboject 50 ML SYRINGE SLOW IVP PRN (16:50)
[2017-12-01] MEDS ORDERED: Ketorolac Tromethamine 30 MG/ML VIAL IVP PRN (16:53)
[2017-12-01 18:48] VITALS: BMI 31.2
[2017-12-01] MEDS: Sodium Chloride 0.9% 1,000 ML IV SCH ×2 (18:55→21:28)
[2017-12-01] MEDS: Acetaminophen 1,000 MG in Premix Bag 1 BAG IVPB SCH (18:55)
--- NOTE | 2017-12-01 20:38 | HP ---
DATE OF ADMISSION: 12/01/2017 HISTORY OF PRESENT ILLNESS: Ms. Gusman is a 47-year-old woman, who presented to outside hospital to day with complaint of severe epigastric abdominal pain of sudden onset. This was associated with mul tiple episodes of nausea, but no emesis. The pain radiated to her back and rated at 10/10. This soniya n started this morning not exacerbated by activity. She has not had any food today. She has similar pain approximately a month ago following meals. The pain resolved spontaneously after about an hour or so. PAST MEDICAL HISTORY: Significant for gastroesophageal reflux disease, essential hypertension, degen erative arthritic disease, and chronic depression. PAST SURGICAL HISTORY: Pertinent for laparoscopic Mely fundoplication in 02/2017, exploratory lapa rotomy and repair of perforated peptic ulcer in 07/2017. Other pertinent surgical history includes t hat of and appendectomy many years ago. SOCIAL HISTORY: Patient is . She lives at home with her . She has a remote history o f tobacco abuse, smoking approximately 20 pack years. She admits occasional intake of ethanol in mod erate amount. She denies any illicit drug abuse. FAMILY HISTORY: Noncontributory for this patient's age. PREHOSPITAL MEDICATIONS: Includes citalopram 20 mg p.o. daily, lisinopril/hydrochlorothiazide combin ation 20/12.5 mg p.o. daily as well as aspirin 81 mg p.o. daily. She also takes Prilosec 20 mg p.o. daily. ALLERGIES: Patient denies any known drug allergies. REVIEW OF SYSTEMS: A 10-point review of systems essentially unremarkable except for as stated in pas t medical history and chief complaint. PHYSICAL EXAMINATION: GENERAL: This reveals 47-year-old normally developed woman, who is otherwise coherent and interactiv e and appears stated age. The patient is alert and oriented x3, appears to be in no acute distress a t the time of my evaluation. VITAL SIGNS: Includes blood pressure 105/71, pulse 58, respiratory rate is 18, temperature 98.3 degr ees Fahrenheit, and oxygen saturation is 99% on room air. HEENT: Reveals normocephalic and atraumatic. Pupils are equal, round, reactive to light and accommo dation. Extraocular muscles are intact bilaterally. No sclerae icterus is present. HEART: Reveals regular rate and rhythm, no murmurs or gallops auscultated. LUNGS: Clear to auscultation bilaterally. Breathing regular and unlabored. ABDOMEN: Soft with moderate epigastric tenderness to palpation. Liver and spleen otherwise nonpalpa ble below costal margin. EXTREMITIES: Reveals 2+ radial and pedal pulses bilaterally. No ankle edema is present. NEUROLOGIC: Reveals no focal deficits present. PERTINENT LABORATORY DATA: Today includes CBC with 17,400 white blood cells, hemoglobin and hematocr it 14.0 and 42.1 respectively. Platelet count is 509,000. Metabolic profile: Sodium 137, potassium is 3.1, chloride is 104, bicarbonate is 17, BUN 11, creatinine is 0.71, glucose 102, AST and ALT bot h normal at 31 and 23 respectively. Total bilirubin is also normal at 1.2. Serum lipase is normal a t 21 units per liter. I have personally reviewed the CT scan of the abdomen and pelvis, which is unremarkable for any acute intra-abdominal pathology. Ultrasound of the abdomen also reveals a dilated gallbladder with no per icholecystic fluid or gallbladder wall thickening. There are no gallstones seen. There is some slud ge within the gallbladder lumen. Common bile ducts is normal in diameter at 4.3 mm. IMPRESSION: Acute epigastric abdominal pain, likely secondary to biliary colic versus acalculous cho lecystitis. PLAN: We will obtain a HIDA scan to determine the physiology and function of the gallbladder and exc lude any chronic biliary disease. The above findings and plan has been discussed with the patient, who indicates understanding of infor mation I have given her today. I think that her symptom is less likely to be secondary to recurrent peptic ulcerative disease given the patient recently had upper endoscopy and is on no nonsteroidal an ti-inflammatory agents. The patient indicates understanding of information I have given her today. I answered all questions. She has granted consent for this admission.
[2017-12-01] MEDS ORDERED: Enoxaparin Sodium 40 MG/0.4 ML SYRINGE SC SCH (21:00)
--- NOTE | 2017-12-01 21:35 | NM ---
HEPATOBILIARY SCAN 12/01/17 COMPARISON: None. HISTORY: Nausea, assess gallbladder function. TECHNIQUE: Anterior planar imaging of the abdomen over 55 minutes obtained following the intravenous administrat ion of 5.1 millicuries technetium 99m labeled Mebrofenin. The patient was pretreated with 1.4 microg jose of CCK IV 20 minutes prior to the injection. FINDINGS: There is gallbladder activity seen by 9-10 minutes. Small bowel activity is seen by 20 minutes. Gallbladder ejection fraction is calculated at 14% suggesting biliary dyskinesia. IMPRESSION: Scintigraphic evidence of cystic duct patency. Ejection fraction of the gallbladder is 14%, abnormall y low. POS: [facility]
[2017-12-02] MEDS: Acetaminophen 1,000 MG in Premix Bag 1 BAG IVPB SCH ×2 (00:06→05:55)
[2017-12-02 05:35] LABS: ALT (SGPT) 26 U/L (8-55); AST (SGOT) 24 U/L (5-34); Albumin 3.2 g/dL (3.5-5.0); Alkaline Phosphatase 60 U/L (40-150); Anion Gap 8 mmol/L (10-20); BUN (Urea Nitrogen) 10 mg/dL (7.0-18.7); Bilirubin, Total 0.4 mg/dL (0.2-1.2); Calc. Creatinine Clearance 111 mL/min (70-130); Calcium 8.2 mg/dL (7.8-10.44); Carbon Dioxide 24 mmol/L (22-29); Chloride 110 mmol/L (98-107); Estimated GFR-MDRD 87; Globulin 2.3 g/dL (2.4-3.5); Glucose 82 mg/dL (70-105); Potassium 3.6 mmol/L (3.5-5.1); Protein, Total 5.5 g/dL (6.0-8.3); Sodium 138 mmol/L (136-145)
[2017-12-02] MEDS: Sodium Chloride 0.9% 1,000 ML IV SCH (06:00)
[2017-12-02] MEDS ORDERED: Midazolam HCl 2 mg/2 ml Vial ONE ×2 (08:50→12:57)
[2017-12-02] MEDS ORDERED: Fentanyl 100 MCG/2 ML VIAL ONE (10:49)
[2017-12-02] MEDS ORDERED: Bupivacaine HCl 0.5%/Epinephrine 1:200,000/PF 30 ml Vial ONE (10:52)
[2017-12-02] MEDS ORDERED: Bupivacaine HCl 0.25%/Epi 0.0005/PF 10 ML VIAL FS ONE ×2 (10:52)
[2017-12-02] MEDS ORDERED: HYDROmorphone 0.5 MG/0.5 ML SYRINGE ONE ×3 (12:51→13:21)
[2017-12-02] MEDS ORDERED: HYDROmorphone 2 MG/ML VIAL SLOW IVP PRN (13:00)
[2017-12-02] MEDS ORDERED: Meperidine HCl/PF 25 MG/ML VIAL SLOW IVP PRN (13:00)
[2017-12-02] MEDS ORDERED: Promethazine HCl 25 MG/ML VIAL SLOW IVP PRN (13:00)
[2017-12-02] MEDS ORDERED: Promethazine HCl 25 MG/ML VIAL IM PRN (13:00)
[2017-12-02] MEDS ORDERED: Morphine Sulfate 2 MG/ML SYRINGE SLOW IVP PRN (13:00)
--- NOTE | 2017-12-02 13:42 | OP ---
DATE OF OPERATION: 12/02/2017 PREOPERATIVE DIAGNOSIS: Acute acalculous cholecystitis. POSTOPERATIVE DIAGNOSIS: Acute acalculous cholecystitis. PROCEDURE PERFORMED: Laparoscopic cholecystectomy. SURGEON: Tim Diego D.O. ANESTHESIA: General endotracheal. ESTIMATED BLOOD LOSS: 50 mL FLUIDS GIVEN: 2000 mL crystalloids. SPONGE AND INSTRUMENT COUNT: Certified as correct x2. COMPLICATIONS: None apparent at time of operation. INDICATIONS FOR PROCEDURE: A 47-year-old woman presented with insidious onset epigastric abdominal p ain, which radiated to her back. Clinical and radiographic examination was consistent with acute cholecystitis. The patient was broug ht to the operating room for laparoscopic cholecystectomy. Findings are consistent with gallbladder in the usual anatomic location completely encased by omental adhesions. DESCRIPTION OF PROCEDURE: Informed consent obtained from the patient who was brought to the operatin g room and placed in supine position. General anesthesia was initiated per Anesthesia Department fol brittnee which, the abdomen is sterilely prepped and draped in usual fashion. Skin below the umbilicus was infiltrated with 0.25% Marcaine with epinephrine. A small curvilinear infraumbilical incision w as made using 11 scalpel. Umbilical stalk grasped with Ronda and elevated. Veress needle inserted through the incision and placed in the peritoneal cavity through which the abdomen was insufflated wi th 3 liters of CO2 gas. Intraabdominal pressure noted at 2 mmHg. Following abdominal insufflation, Veress needle was removed and a 5 mm trocar inserted into the peritoneal cavity using a Visiport unde r laparoscopy. Laparoscopy confirmed proper placement of the port, no injuries to underlying structu res. Additional laparoscopy reveals gallbladder in the usual anatomic location encased by omental ad hesions. Under direct laparoscopy, a 12 mm epigastric and two 5 mm right lateral subcostal ports wer e placed after the overlying skin were infiltrated with 0.25% Marcaine with epinephrine and appropria te incisions made. The patient was then placed in a reverse Trendelenburg position, rotated to her l eft. I introduced the [place] dissector with cautery to take down omental adhesions from the gallbl adder, achieving hemostasis with cautery. Prestige grasper was then introduced through the right lat eral subcostal port grasping the fundus of the gallbladder which was elevated cephalad. Omental adhe sions were then carefully taken down from the remainder of the gallbladder. A second Prestige graspe r was introduced through the right medial subcostal port grasping the Zee's pouch which was retra cted laterally. An anterior coursing cystic artery was dissected free from surrounding structures an d divided between clips. Two clips were applied proximally and one clip at the junction of the cysti c artery and gallbladder. The cystic duct was then dissected free from surrounding structures and di vided between clips in a similar fashion. Gallbladder surface removed from the liver bed using caute ry. Gallbladder is delivered of the abdominal cavity using an EndoCatch. Operative site was inspect ed. There is oozing of the gallbladder fossa. Hemostasis readily achieved using 2 pieces of 1 x 2 i nch fibula. Finding no other pathology, laparoscopy was terminated. Fascia of the epigastric port w as closed using 0 Vicryl suture and Endo closure device under laparoscopy. The abdomen was desufflat ed. All ports and instruments removed and accounted for. Skin incisions closed using 4-0 Monocryl s uture in subcuticular fashion. Dermabond was applied over the incisional closure. The patient león ated the operation without any apparent complication and was returned to recovery room in satisfactor y condition.
[2017-12-02] MEDS ORDERED: PROPOFOL 200 MG/20 ML VIAL ONE (14:22)
[2017-12-02] MEDS ORDERED: Lidocaine 1% PF 5 ML VIAL ONE (14:22)
[2017-12-02] MEDS ORDERED: Dexamethasone 20 MG/5 ML VIAL ONE (14:22)
[2017-12-02] MEDS ORDERED: Ondansetron HCl/PF 4 MG/2 ML Vial ONE (14:22)
[2017-12-02] MEDS ORDERED: Glycopyrrolate 0.2 MG/ML 5 ML SYRINGE ONE (14:22)
[2017-12-02] MEDS ORDERED: Acetaminophen/Codeine 30-300mg Tablet PO PRN ×2 (16:11)
[2017-12-02 18:24] VITALS: BP 121/70; TEMP 98.1
[2017-12-03] MEDS ORDERED: Citalopram 20 MG TAB PO SCH (09:00)
[2017-12-03] MEDS ORDERED: Lisinopril/Hydrochlorothiazide 20 mg/12.5 mg Tablet PO SCH (09:00)
== END 2017-12-02 18:33 | disposition home or self-care (01) ==
LOC: ERS 13:02 → SURG B 16:50
PROVIDERS: ADMIT Surgery; ATTEND Surgery
PROC: 0FT44ZZ Resection of Gallbladder, Percutaneous Endoscopic Approach (ICD-10-PCS; principal; 2017-12-02)
DX: K81.0 Acute cholecystitis (principal); K81.1 Chronic cholecystitis; K21.9 Gastro-esophageal reflux disease without esophagitis; I10 Essential (primary) hypertension; M19.90 Unspecified osteoarthritis, unspecified site; F32.9 Major depressive disorder, single episode, unspecified; F17.210 Nicotine dependence, cigarettes, uncomplicated; Z79.82 Long term (current) use of aspirin; Z79.899 Other long term (current) drug therapy; Z98.890 Other specified postprocedural states
CPT/HCPCS: 36415; 78227; 80053; 88304; 96361; 96372; 96374; 96375; 96376; A9537; G0378; J0131; J0670; J1100; J1170; J1650; J1885; J2001; J2250; J2270; J2405; J2704; J3010; J7620

== ENCOUNTER 2017-12-08 10:51 | Outpatient (CLI) | payer BC, OTHER ==
--- NOTE | 2017-12-09 12:07 | MMO ---
BILATERAL SCREENING MAMMOGRAM: DATE: 12/08/17 HISTORY: 47-year-old female for screening mammography. COMPARISON: 12/04/16. FINDINGS: Bilateral MLO and CC views of the breasts show scattered fibroglandular breast tissue. There is a sta ble, well circumscribed nodule in the outer aspect of the left breast. This may represent an intramam alba lymph node. There is no evidence of suspicious mass, suspicious cluster of microcalcifications, or area of architectural distortion. Interpretation of this mammogram was performed with the assistance of computer-aided detection. IMPRESSION: BIRADS 2: Benign Finding(s) Annual screening mammography is recommended. POS: [facility]
== END 2017-12-08 10:52 | disposition home or self-care (01) ==
LOC: SCSMAMMO 10:51
PROVIDERS: ATTEND Obstetrics & Gynecology
DX: Z12.31 Encounter for screening mammogram for malignant neoplasm of breast (principal)
CPT/HCPCS: 77067

== ENCOUNTER 2018-10-12 08:09 | Outpatient (CLI) | payer BC, OTHER ==
--- NOTE | 2018-10-12 10:45 | BD ---
BONE DENSITOMETRY: Date: 10/12/18 HISTORY: Postmenopausal osteoporosis screening. FINDINGS: Lumbar Spine: BMD (g/cm2) L1 0.933 T-Score: -0.5 L2 0.922 T-Score: -1.0 L3 0.829 T-Score: -2.3 L4 0.853 T-Score: -1.9 Total 0.881 T-Score: -1.5 Left Femoral Neck: 0.743 T-Score: -1.0 Total Femur: 0.985 T-Score: 0.4 IMPRESSION: 1. Bone mineral density of the lumbar spine indicates osteopenia. 2. Bone mineral density of the femoral neck is within normal range. POS: [facility]
== END 2018-10-12 08:10 | disposition home or self-care (01) ==
LOC: BICMAMMO 08:09
PROVIDERS: ATTEND Allergy & Immunology
DX: M06.9 Rheumatoid arthritis, unspecified (principal); M85.88 Other specified disorders of bone density and structure, other site
CPT/HCPCS: 77080

== ENCOUNTER 2019-01-06 15:06 | Outpatient (CLI) | payer BC ==
--- NOTE | 2019-01-06 16:14 | RAD ---
THREE VIEWS CERVICAL SPINE: 01/06/19 PROVIDED CLINICAL HISTORY: Cervicalgia. FINDINGS: Slight anterolisthesis of C4 on C5. Cervical alignment appears otherwise normal. Disc space narrowing and end plate degenerative changes are seen at C5-6. Vertebral body heights appear preserved. Interv ertebral disc space heights appear otherwise preserved. No prevertebral soft tissue swelling apparent . The visualized lung apices appear clear. IMPRESSION: Cervical degenerative change as above. POS: [facility]
== END 2019-01-06 15:07 | disposition home or self-care (01) ==
LOC: BICRAD 15:06
PROVIDERS: ATTEND Internal Medicine Rheumatology
DX: M54.2 Cervicalgia (principal); M47.812 Spondylosis without myelopathy or radiculopathy, cervical region
CPT/HCPCS: 72040

== ENCOUNTER 2019-01-12 07:30 | Outpatient (CLI) | payer BC, OTHER ==
[2019-01-12] MEDS ORDERED: Iopamidol 300 61% 100 ML VIAL FS ONE (09:00)
--- NOTE | 2019-01-12 12:55 | CT ---
EXAM: CT ABDOMEN AND PELVIS HISTORY: Epigastric pain. COMPARISON: 12/01/2017 Procedure: Multiple contiguous axial images were obtained and a CT of the abdomen and pelvis with IV contrast. C oronal reformats were performed. FINDINGS: Lower Chest: Scar/atelectasis in the left lower lobe Vessels: Normal caliber aorta Heart: Normal heart size. No significant pericardial fluid Abdomen: Portal vein:Patent Gallbladder: Surgically absent Liver: within normal limits. Pancreas: within normal limits. Spleen: within normal limits. Adrenals: within normal limits. Kidneys: Symmetric enhancement. No obstructive uropathy. Peritoneum: No ascites or free air, no fluid collection. Bowel: Unremarkable gastric mucosa. Multiple normal caliber small bowel loops. Ileocecal junction dem onstrate circumferential mucosal thickening.. Mesentery and Retroperitoneum: No enlarged mesenteric or retroperitoneal lymph nodes. Abdominal Wall: within normal limits. Pelvis: Reproductive Organs: 0.9 cm calcified lesion in the left uterus. Small fibroid is suspected Pelvis: within normal limits. Bladder: within normal limits. Bones: Stable sclerotic focus in the left iliac wing, likely representing a bone island measuring 0.9 cm IMPRESSION: No evidence of acute intraabdominal\pelvic abnormality. Additional findings as above
== END 2019-01-12 07:31 | disposition home or self-care (01) ==
LOC: SCSCT 07:30
PROVIDERS: ATTEND Internal Medicine Gastroenterology
DX: R10.13 Epigastric pain (principal); R11.0 Nausea; R10.30 Lower abdominal pain, unspecified; K25.5 Chronic or unspecified gastric ulcer with perforation; K21.0 Gastro-esophageal reflux disease with esophagitis
CPT/HCPCS: 74177; Q9967

== ENCOUNTER 2019-02-07 07:59 | Outpatient (CLI) | payer BC ==
--- NOTE | 2019-02-07 13:46 | NM ---
RADIONUCLIDE GASTRIC EMPTYING SCAN: HISTORY: Epigastric pain. Hiatal hernia surgery 2017 RADIOPHARMACEUTICAL: 2 mCi technetium 99m sulfur colloid administered orally in scrambled eggs. FINDINGS: Gastric emptying at different times is as follows: 1 hour: 74% 2 hours: 76% 3 hours: 91% 4 hours: 97% The calculated gastric emptying half-time [id number]. IMPRESSION: Rapid gastric emptying.
== END 2019-02-07 08:00 | disposition home or self-care (01) ==
LOC: NM 07:59
PROVIDERS: ATTEND Internal Medicine Gastroenterology
DX: R10.13 Epigastric pain (principal)
CPT/HCPCS: 78264; A9541

== ENCOUNTER 2019-03-25 12:54 | Outpatient (CLI) | payer BC ==
--- NOTE | 2019-03-25 15:39 | MRI ---
MRI CERVICAL SPINE 03/25/19 PROVIDED CLINICAL HISTORY: Cervical radiculopathy. FINDINGS: Cervical alignment appears normal. Vertebral body heights appear preserved. No focal concerning regio nal marrow signal abnormality is evident. 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 The visualized posterior fossa, cervicomedullary junction, cervical spinal cord demons trate an otherwise unremarkable MR appearance. At C2-3, there is no significant central canal or foraminal narrowing apparent. At C3-4, there is no significant central canal or foraminal narrowing apparent. At C4-5, there is a mild broad based disc bulge and left sided facet arthritis without significant ce ntral canal or foraminal narrowing apparent. At C5-6, there is a broad based disc bulge and bilateral uncinate process hypertrophy. Mild bilateral foraminal narrowing. Effacement of the ventral subarachnoid space without cord contact or deformity. There is disc space height loss and end plate degenerative change. At C6-7, there is no significant central canal or foraminal narrowing apparent. At C7-T1, there is no significant central canal or foraminal narrowing apparent. IMPRESSION: Cervical degenerative changes as described. POS: [facility]
== END 2019-03-25 12:55 | disposition home or self-care (01) ==
LOC: BICMRI 12:54
PROVIDERS: ATTEND Neurological Surgery
DX: M47.22 Other spondylosis with radiculopathy, cervical region (principal)
CPT/HCPCS: 72141

== ENCOUNTER 2019-05-04 07:39 | Day surgery (SDC) | payer BC ==
[2019-05-03 10:50] VITALS: BMI 30.2
--- NOTE | 2019-05-03 14:16 | HP ---
HISTORY OF PRESENT ILLNESS: Ms. Gusman is a pleasant 49-year-old woman, here today for evaluation of 6 months worth of worsening neck pain associated with bilateral C6 numbness and pain. She has treated this with [id number] medications, gabapentin without much success. She has also attended home exercises for stretches for the last 12 weeks and feels this seems to make her symptoms worse. She has pain worse at nighttime when lying down and when driving her numbness is constant. No treatment has really helped her in any significant way other than Celebrex, which she took once and it did relieve her symptoms momentarily. MRI from [facility] reveals degenerative disk disease at C5-C6 as well as early grade 1 retrolisthesis and foraminal narrowing that fits her symptoms well. PAST MEDICAL HISTORY: Significant for anxiety, hypertension, insomnia, and migraine headaches. PAST SURGICAL HISTORY: section x2, appendectomy, herniorrhaphy, cholecystectomy, and unspecified left thumb surgery. ALLERGIES: NO KNOWN DRUG ALLERGIES. CURRENT MEDICATIONS: 1. Microgestin. 2. Lorazepam. 3. Amitriptyline. 4. Coreg. 5. Dyazide. 6. Paroxetine. 7. Gabapentin. 8. Melatonin. 9. Benadryl. PHYSICAL EXAMINATION: GENERAL: The patient is alert and oriented x3. NEUROLOGICAL: Gait is normal. No ataxia. Upper extremity motor exam reveals full strength bilaterally in all movements of the upper extremities. No sensory disturbance that I can discern. She has a positive Spurling's more to the left than to the right, but pain is elicited on both sides. ASSESSMENT: Cervical radiculopathy and cervical spinal stenosis. PLAN: Dr. Johnson met with the patient, reviewed imaging, advocated for C5-C6 ACDF. He explained to the patient the risks, benefits, and alternatives to the procedure. The patient expressed understanding and elected to move forward with surgery as discussed. I do believe the patient is mentally competent and capable of making medical decisions for herself. We will move forward with surgery as planned. Job ID: [id number]
[2019-05-04 09:00] LABS: Anion Gap 13 mmol/L (10-20); BUN (Urea Nitrogen) 14 mg/dL (7.0-18.7); Calc. Creatinine Clearance 108 mL/min (70-130); Calcium 9.1 mg/dL (7.8-10.44); Carbon Dioxide 23 mmol/L (22-29); Chloride 108 mmol/L (98-107); Estimated GFR-MDRD 86; Glucose 84 mg/dL (70-105); Potassium 3.9 mmol/L (3.5-5.1); Sodium 140 mmol/L (136-145)
[2019-05-04] MEDS ORDERED: ePHEDrine/0.9% NaCl/PF SYRINGE 50 mg/10 ml ONE (10:14)
[2019-05-04] MEDS ORDERED: Dexamethasone 20 MG/5 ML VIAL ONE (10:14)
[2019-05-04] MEDS ORDERED: Rocuronium Bromide 10 MG/ML (10ML VIAL) ONE (10:14)
[2019-05-04] MEDS ORDERED: Glycopyrrolate 0.2 MG/ML 5 ML SYRINGE ONE (10:14)
[2019-05-04] MEDS ORDERED: PROPOFOL 200 MG/20 ML VIAL ONE (10:14)
[2019-05-04] MEDS ORDERED: Lidocaine 1% PF 5 ML VIAL ONE (10:14)
[2019-05-04] MEDS ORDERED: Fentanyl 100 MCG/2 ML VIAL ONE ×3 (10:24→12:23)
[2019-05-04] MEDS ORDERED: Lidocaine 2% Jelly 5 ML TUBE ONE (10:24)
[2019-05-04] MEDS ORDERED: HYDROmorphone 0.5 MG/0.5 ML SYRINGE ONE (12:00)
[2019-05-04] MEDS ORDERED: Promethazine HCl 25 MG/ML VIAL ONE (12:03)
--- NOTE | 2019-05-04 13:19 | OP ---
DATE OF PROCEDURE: 05/04/2019 LENS MOUNTER: Massimo Arce PA-C INDICATION: Pain. DIAGNOSIS: Cervical radiculopathy. PROCEDURE PERFORMED: Anterior cervical diskectomy and fusion, C5-C6. ANESTHESIA: General. DESCRIPTION OF PROCEDURE: The patient was brought into the operating room and placed under general anesthesia. She was placed on table in a supine position. A transverse incision was planned over the lateral aspect of the neck on the right. After prepping and draping and after an appropriate perioperative pause, the incision was created. The underlying platysma muscle was identified and incised and a blunt tissue plane anterior to the sternocleidomastoid mastoid muscle was used to gain access to the prevertebral space. Self-retaining retractors were placed. The C-arm images were obtained to confirm the appropriate level. After confirming the appropriate level, an annulotomy was performed at the C5-C6 disk space. All disk material as well as anterior and posterior osteophytes were removed. After complete decompression at C5-C6, PEEK cage packed with allograft and autograft material was placed within the interbody space. An anterior cervical plate was then fashioned from the spine and secured with a total of 4 fixed screws. Midline and lateral structures were inspected and found to be free from significant trauma. The wound was irrigated. Hemostasis was maintained throughout. The wound was then closed in anatomic layers and a pressure dressing was applied. There were no known procedural complications. Job ID: [id number]
== END 2019-05-04 14:00 | disposition home or self-care (01) ==
LOC: SDC 07:39
PROVIDERS: ATTEND Neurological Surgery
DX: M54.12 Radiculopathy, cervical region (principal); M48.02 Spinal stenosis, cervical region; I10 Essential (primary) hypertension; F41.9 Anxiety disorder, unspecified; G43.909 Migraine, unspecified, not intractable, without status migrainosus; Z79.899 Other long term (current) drug therapy
CPT/HCPCS: 76000; 80048; 93005; 93010; C1713; C1776; J0690; J1100; J1170; J2001; J2550; J2704; J3010

== ENCOUNTER 2020-02-13 06:36 | Inpatient (IN) | payer BC ==
[2020-02-13] MEDS ORDERED: Ondansetron PF 4 MG/2 ML Vial IVP PRN (09:51)
[2020-02-13] MEDS ORDERED: Ondansetron ODT 4 MG TAB PO PRN (09:51)
[2020-02-13] MEDS ORDERED: Acetaminophen 325 MG TAB PO PRN (09:51)
[2020-02-13] MEDS ORDERED: Fentanyl 100 MCG/2 ML VIAL SLOW IVP PRN ×2 (10:18→18:39)
--- NOTE | 2020-02-13 10:22 | PDOC.HHP ---
Hospitalist HPI - History of Present Illness Abdominal pain, diarrhea History of Present Illness: PCP: Dr. Hannah The patient is a 50-year-old female with a past medical history significant for GERD, perforated gastric ulcer, and Rice's esophagus that presents to the emergency department as a transfer via EMS from [place]. The patient reports having abdominal pain and diarrhea for the past month. She reports that the abdominal pain is generalized, describes as cramping, intermittent exacerbated with oral intake and relieved by nothing. The patient reports having approximately 6-8 loose stools per day, for the past month. She reports that this is exacerbated in the morning and after eating. Denies recent hospitalization, antibiotic usage, ingestion of uncooked foods or travel. Last night, she reports that her abdominal pain increased in intensity and became more constant. She denies any hematochezia or melena. She denies any recent fever or chills. Her last was in [address] Bell. Denies any chest pain, heart palpitations, swelling to her lower extremities. Denies any shortness of breath, cough or wheezing. ED Course: [facility]: T 97.9, BP 140/90, HR 88, RR 18, SPO2 98% RA, 9/[address] abdomen pelvis showed bowel wall thickening involving the colon, worrisome for colitis. WBC 11.0, LA 2.3, K3.0. Medication ministration: Zosyn IVPB 2.5 L normal saline KCl 40 mEq Zofran and morphine Hospitalist ROS - Review of Systems Constitutional: denies: fever, chills Respiratory: denies: cough, shortness of breath, hemoptysis Cardiovascular: denies: chest pain, palpitations, edema Gastrointestinal: reports: abdominal pain (Diffuse, cramping), diarrhea (6-8 loose stools per day). denies: nausea, melena, hematochezia Genitourinary: denies: dysuria, hematuria Musculoskeletal: denies: neck pain, shoulder pain Skin: denies: rash, bruising Neurological: denies: weakness, incoordination, change in speech All other systems reviewed; all pertinent +/- noted in HPI/Subj - Medication Medications: 1. Carvedilol 3.125 mg p.o. twice daily 2. Gabapentin 300 mg p.o. twice daily. 3. North syndrome ACEth estradiol 1 tab p.o. daily 4. Omeprazole 40 mg p.o. daily. 5. Dyazide 1 tablet p.o. daily. Allergies: NKDA Hospitalist History - Past Medical History Source: patient, RN notes reviewed Cardiac: reports: HTN Gastrointestinal: reports: GERD, Peptic ulcer disease (Perforated ), Other (Rice's esophagus) - Past Surgical History Past Surgical History: reports: Cholecystectomy, (X2), Hernia Repair, Tubal Ligation, Other (carpal tunnel) - Family History Family History: reports: cancer (Colon cancer) - Social History Smoking Status: Former smoker Tobacco Type: cigarettes Alcohol: reports: Rare Drugs: reports: none Living Situation: With Family Occupation: Works at [employer] Activity level: independent ambulation - Exam General Appearance: NAD, awake alert. negative: ill appearing General - other findings: Uncomfortable Eye: anicteric sclera ENT: normocephalic atraumatic, dry oral mucosa Neck: supple, symmetric, no JVD Heart: RRR, no murmur, no gallops, no rubs, normal peripheral pulses Respiratory: CTAB, no wheezes, no rales, no ronchi, normal chest expansion, no tachypnea Gastrointestinal: soft, no bruit, no guarding, no rigidity, tender to palpation (Throughout) Gastrointestinal - other findings: Negative Rovsing, Kuo sign Extremities: no cyanosis, no edema Skin: no rashes Neurological: normal sensation to touch, no weakness, no focal deficits Musculoskeletal: normal tone, normal strength Psychiatric: normal affect, A&O x 3 Hospitalist Results - Labs Lab results: Laboratory Tests 02/13/20 02/13/20 02/13/20 03:40 03:55 03:55 WBC 11.0 H RBC 4.26 Hgb 13.0 Hct 39.3 Plt Count 301 Sodium 138 Potassium 3.0 L Chloride 105 Carbon Dioxide 17 L Anion Gap 19 BUN 18 Creatinine 1.14 H Glucose 111 H Lactic Acid Calcium 8.5 Total Bilirubin 0.3 AST 28 ALT 27 Alkaline Phosphatase 74 Serum Total Protein 6.8 Albumin 3.9 Globulin 2.9 Albumin/Globulin Ratio 1.3 Lipase 23 Serum , Qual Urine Blood Moderate A Urine RBC 7-10 A 02/13/20 02/13/20 03:55 03:55 WBC RBC Hgb Hct Plt Count Sodium Potassium Chloride Carbon Dioxide Anion Gap BUN Creatinine Glucose Lactic Acid 2.3 H Calcium Total Bilirubin AST ALT Alkaline Phosphatase Serum Total Protein Albumin Globulin Albumin/Globulin Ratio Lipase Serum , Qual Negative Urine Blood Urine RBC - Radiology Interpretation CT scan - abdomen Status: report reviewed by me Additional Comment: Bowel wall thickening, involving the colon, worrisome for colitis. Hospitalist H&P A/P - Problem (1) Acute colitis Code(s): K52.9 - NONINFECTIVE GASTROENTERITIS AND COLITIS, UNSPECIFIED Status: Acute (2) ZULMA (acute kidney injury) Code(s): N17.9 - ACUTE KIDNEY FAILURE, UNSPECIFIED Status: Acute (3) Hypokalemia Code(s): E87.6 - HYPOKALEMIA Status: Acute (4) GERD (gastroesophageal reflux disease) Code(s): K21.9 - GASTRO-ESOPHAGEAL REFLUX DISEASE WITHOUT ESOPHAGITIS Status: Acute (5) Hypertension Code(s): I10 - ESSENTIAL (PRIMARY) HYPERTENSION Status: Chronic - Plan Plan: 50/F with PMH for GERD, Rice's esophagus, perforated gastric ulcer presents for abdominal pain and diarrhea. Will admit to oncology floor, inpatient status. Expected length of stay greater than 2 midnights. Presented afebrile, normotensive, normal heart rate, normal respirations, afebrile. CT abdomen pelvis showed bowel wall thickening involving the colon, worrisome for colitis. No abscess. Lactic acid 2.3, WBCs 11, K 3.0 Given Zosyn IVP, 40 mEq of potassium, 2.5L NS. #Acute colitis We will continue Zosyn IVPB. Repeat LA, check TSH, mag level and stool studies. Continue IV fluids. N.p.o. Consult gastroenterology. #ZULMA Presented creatinine 1.14, was 0.72 (05/12). Continue IVF. Recheck level in a.m. #Hypokalemia Mild. Presented K 3.0, replaced 40 mEq. Recheck BMP and magnesium level. #GERD Takes omeprazole at home. We will start Protonix IVP. Been diagnosed with Rice's esophagus. Has history of perforated peptic ulcer (2017/2018). #Hypertension Presented with stable BP. Takes carvedilol and Dyazide at home. These medications for now. Continue to monitor BP. SCDs for DVT prophylaxis. Protonix for GI prophylaxis. Full code. Medical decision maker is her Shukri at [phone]. Discussed case with Dr. Biggs.
[2020-02-13] MEDS: Morphine 4 MG/ML VIAL SLOW IVP PRN ×2 (10:40→14:03)
[2020-02-13] MEDS: Sodium Chloride 0.9% 1,000 ML IV SCH ×2 (10:41→23:49)
[2020-02-13 10:57] LABS: Lactic Acid 1.8 mmol/L (0.5-2.2)
[2020-02-13] MEDS: Piperacillin/Tazobactam 3.375 GM in Sodium Chloride 0.9% 100 ML IVPB SCH ×3 (12:38→23:46)
[2020-02-13 13:01] VITALS: BMI 35.7
--- NOTE | 2020-02-13 13:13 | ULT ---
US Renal Bilateral STANDARD History: Acute kidney injury Comparison: CT examination same day Findings: Real-time grayscale and color evaluation of the kidneys and urinary bladder was performed. Right kidney measures 11.3 x 4.2 x 4.7 cm in the left kidney measures 11.5 x 4.9 x 4.6 cm. Urinary bl adder is unremarkable. No renal mass, hydronephrosis or abnormal calcifications. Impression: No evidence for obstructive uropathy.
[2020-02-13] MEDS ORDERED: Magnesium 2 GM/50 ML 2 GM in Premix Bag 1 BAG IVPB SCH (14:00)
[2020-02-13] MEDS ORDERED: Fentanyl 100 MCG/2 ML VIAL SLOW IVP SCH (15:00)
[2020-02-13] MEDS ORDERED: Potassium Chloride 40 MEQ in Premix Bag 1 BAG IVPB SCH (15:15)
[2020-02-13] MEDS ORDERED: Potassium Chloride 40 MEQ in Sodium Chloride 0.9% 250 ML 250 ML IVPB SCH (15:30)
[2020-02-13] MEDS ORDERED: GoLYTELY 4,000 ml Bottle PO SCH (17:00)
--- NOTE | 2020-02-13 17:00 | PDOC.EVN ---
Event Note - Event Note Event Note: Chart reviewed. Patient seen. Discussed with ALEJANDRO. Agree with assessment and plan of care as documented. Briefly, 50-year-old lady presenting with abdominal pain and colitis. Vital signs are stable. S1 and S2 are heard, regular. Lungs are clear to auscultation bilaterally. CT abdo/pelvis: colitis. Pt is on empiric Zosyn, will continue.
[2020-02-13] MEDS ORDERED: Morphine 2 MG/ML VIAL SLOW IVP PRN (18:42)
[2020-02-13] MEDS: Gabapentin 300 MG CAP PO SCH (20:10)
[2020-02-13] MEDS: Carvedilol 3.125 MG TAB PO SCH (20:10)
[2020-02-13] MEDS ORDERED: Pantoprazole 40 MG VIAL IVP SCH (21:00)
--- NOTE | 2020-02-13 21:29 | CON ---
DATE OF CONSULTATION: 02/13/2020 REASON FOR CONSULTATION: Colitis. HISTORY OF PRESENT ILLNESS: Kirsty Gusman is a 50-year-old woman, who has seen my GI colleague, Dr. Supriya Bell in the outpatient setting for several years. She has a history significant for Rice esophagus as well as perforated gastric ulcer, status post surgery and Mely fundoplication a couple of years ago. She also has a family history of colon cancer in her father, and so has been getting screening colonoscopies with Dr. Bell. Her last colonoscopy was in 2017 and showed only internal hemorrhoids. Ms. Gusman does not have a lot of chronic gastrointestinal symptoms, but about 1 month ago, she started having diarrhea and it has been persistently worsening over the past month. She reports at least 6 to 8 bowel movements per day, multiple liquid stools in the mornings and then immediate urgent postprandial bowel movements thereafter. Stools are always loose and watery and urgent. She has actually had several accidents. She denies any melena or hematochezia with this. She does have some lower abdominal pain, which is usually mild, but can occasionally gets severe. There has been no nausea or vomiting with this. No fever. She cannot recall taking any antibiotics more recently than last November. Nobody else got sick. Upon presentation, she had a CT of the abdomen and pelvis and this demonstrates diffuse colonic thickening with inflammatory stranding suggestive of diffuse colitis. Stool studies back so far show negative C difficile antigen and toxin, negative Campylobacter and Shiga toxin, negative O and P, but elevated fecal lactoferrin. REVIEW OF SYSTEMS: Full review of systems including constitutional, head, eyes, ears, nose, throat, GI, , cardiovascular, respiratory, musculoskeletal, neurologic systems is negative except as noted in the HPI. PAST MEDICAL HISTORY: Rice esophagus, erosive esophagitis, peptic ulcer disease with perforation in 2018, Mely fundoplication, cholecystectomy, x2, hernia repair, hypertension. FAMILY HISTORY: Her father had colon cancer. SOCIAL HISTORY: She is a former smoker. No alcohol or drug use. ALLERGIES: NO KNOWN DRUG ALLERGIES. OUTPATIENT MEDICATIONS: 1. Omeprazole 40 mg daily. 2. Gabapentin. 3. Coreg. 4. Dyazide. PHYSICAL EXAMINATION: VITAL SIGNS: Temperature 98.4, pulse 68, blood pressure 128/57, and 98% oxygen saturation on room air. GENERAL: A 50-year-old woman, lying in bed comfortably, in no distress. SKIN: No jaundice. No rashes were palpable. EYES: No scleral icterus. Extraocular movements are intact. ENT: Mucous membranes are moist. No oral lesions. LYMPH: No submandibular or supraclavicular lymphadenopathy. THYROID: Nontender to palpation. HEART: Regular rate and rhythm. LUNGS: Clear to auscultation bilaterally. ABDOMEN: Obese, nondistended. Bowel sounds present. Soft. Tender to palpation in the lower abdomen. No guarding or rebound tenderness. EXTREMITIES: No peripheral edema. VESSELS: Radial pulses 2+ bilaterally. NEUROLOGIC: Cranial nerves 2 through 12 are intact bilaterally. No focal deficits. LABORATORY STUDIES: WBC 11.0, hemoglobin 13.0, platelets 301. Sodium 138, potassium 3.0, BUN 18, creatinine 1.14, glucose 111. Lipase 23. LFTs all normal with total bilirubin 0.3, alkaline phosphatase 74, AST 28, ALT 27, albumin 3.9, lipase 23. COVID swab was refused. Stool studies show elevated fecal lactoferrin, negative C difficile antigen and toxin, negative Campylobacter antigen, negative shiga toxin, Giardia and Cryptosporidium negative. TSH was 4.16. Lactic acid 1.8. IMAGING STUDIES: Renal ultrasound was normal. CT of the abdomen and pelvis demonstrates diffuse colitis characterized by marked thickening and inflammatory stranding throughout the colon, prior Mely fundoplication, prior appendectomy and cholecystectomy. There is 1.1 cm right lower quadrant lymph node. ASSESSMENT AND PLAN: 1. Colitis, indeterminate, appears to involve the entire colon based on CT. 2. Chronic diarrhea for the past month. 3. Lower abdominal pain. I had a long discussion with the patient about her presentation. Stool studies back so far are negative for any infectious agents. Symptoms have been going on for about a month now, which raises the possibility of onset of inflammatory bowel disease. Given the length of her symptoms as well as negative stool studies to-date, I think further investigation is warranted with colonoscopy. Her last colonoscopy was 3 years ago. We will schedule her for procedure tomorrow, plan to get colon biopsies. Further recommendation will be based on endoscopic and histologic findings. The patient understands and desires to proceed. Thank you for the consultation. Please call anytime with questions or concerns. Job ID: [id number]
[2020-02-14] MEDS: Carvedilol 3.125 MG TAB PO SCH (05:15)
[2020-02-14] MEDS: Piperacillin/Tazobactam 3.375 GM in Sodium Chloride 0.9% 100 ML IVPB SCH (05:15)
[2020-02-14 06:08] LABS: #Eosinphils 0.3 thou/uL (0.0-0.7); #Lymphocytes 2.4 thou/uL (1.20-3.40); #Monocytes 0.4 thou/uL (0.11-0.59); #Neutrophils 2.4 thou/uL (1.40-6.50); %Basophils 0.8 % (0.0-1.0); %Lymphocytes 43.4 % (21.0-51.0); %Monocytes 8.1 % (0.0-10.0); %Neutrophils 42.7 % (42.0-75.0); Hemoglobin 10.8 g/dL (12.0-16.0); Mean Corpuscular Hemoglobin 32.3 pg (27.0-31.0); Mean Corpuscular Volume 94.9 fL (78.0-98.0); Mean Platelet Volume 8.3 fL (7.4-10.4); Platelet Count 319 thou/uL (130-400); RBC Distribution Width 11.4 % (11.5-14.5); Red Blood Cell (RBC) Count 3.34 mill/uL (4.20-5.40); White Blood Cell (WBC) Count 5.5 thou/uL (4.8-10.8)
[2020-02-14 06:29] LABS: Anion Gap 12 mmol/L (10-20); BUN (Urea Nitrogen) 6 mg/dL (7.0-18.7); Calc. Creatinine Clearance 124 mL/min (70-130); Calcium 7.5 mg/dL (7.8-10.44); Carbon Dioxide 18 mmol/L (22-29); Chloride 111 mmol/L (98-107); Estimated GFR-MDRD 87; Glucose 83 mg/dL (70-105); Magnesium 1.9 mg/dL (1.6-2.6); Sodium 138 mmol/L (136-145)
[2020-02-14 08:33] VITALS: BP 113/59; TEMP 98.5
[2020-02-14] MEDS: Sodium Chloride 0.9% 1,000 ML IV SCH (08:40)
[2020-02-14] MEDS ORDERED: Triamterene/Hydrochlorothiazide 37.5 mg/25 mg Tablet PO SCH (09:00)
[2020-02-14] MEDS ORDERED: Potassium Chloride 20 MEQ TAB PO SCH (09:00)
[2020-02-14] MEDS ORDERED: NORETHINDRONE AC ETH ESTRADIOL PO SCH (09:00)
[2020-02-14] MEDS: Gabapentin 300 MG CAP PO SCH (09:24)
--- NOTE | 2020-02-15 01:50 | DIS ---
DATE OF ADMISSION: 02/13/2020 DATE OF DISCHARGE: 02/14/2020 DISCHARGE DIAGNOSES: 1. Chronic diarrhea. 2. Diffuse colitis. 3. Lower abdominal pain. DISPOSITION: The patient left against medical advice. I saw the patient on the day of discharge, she refused to discuss her condition with me and asked to be released. Job ID: [id number]
== END 2020-02-14 10:20 | disposition home or self-care (01) | DRG 392 ==
LOC: ONC 06:36
PROVIDERS: ADMIT Internal Medicine; ATTEND Internal Medicine
DX: K52.9 Noninfective gastroenteritis and colitis, unspecified (principal); N17.9 Acute kidney failure, unspecified; K21.9 Gastro-esophageal reflux disease without esophagitis; K22.70 Barrett's esophagus without dysplasia; E87.6 Hypokalemia; I10 Essential (primary) hypertension; Z79.899 Other long term (current) drug therapy; Z90.49 Acquired absence of other specified parts of digestive tract; Z98.51 Tubal ligation status; Z87.891 Personal history of nicotine dependence; Z98.890 Other specified postprocedural states; Z53.29 Procedure and treatment not carried out because of patient's decision for other reasons
CPT/HCPCS: 36415; 76770; 80048; 83605; 83630; 83735; 84443; 85025; 87045; 87046; 87186; 87324; 87328; 87329; 87427; 87449; C9113; J2270; J2543; J3010; J3475; J3480; J3490; J7050

== ENCOUNTER 2021-04-22 07:34 | Outpatient (CLI) | payer BC | END 2021-04-22 07:35 | disposition home or self-care (01) | LOC: TBSIIMAG 07:34 | PROVIDERS: ATTEND Anesthesiology Pain Medicine | DX: M48.02 Spinal stenosis, cervical region (principal); M50.823 Other cervical disc disorders at C6-C7 level; M47.812 Spondylosis without myelopathy or radiculopathy, cervical region; Z98.1 Arthrodesis status | CPT/HCPCS: 72141 ==